=== PATIENT | male | born 1950 | race Caucasian/White ===

== ENCOUNTER 2023-05-08 11:30 | Emergency (ER) | payer MEDICARE | END 2023-05-08 13:30 | disposition home or self-care (01) | LOC: LB.ED 11:30 | DX: R60.0 Localized edema (principal); I10 Essential (primary) hypertension; E03.9 Hypothyroidism, unspecified; I48.91 Unspecified atrial fibrillation; Z79.899 Other long term (current) drug therapy | CPT/HCPCS: 36415; 85379; 99283; 99284 ==

== ENCOUNTER 2023-10-23 10:25 | Emergency (ER) | payer MEDICARE ==
[2023-10-23] MEDS ORDERED: Sodium Chloride 0.9% 10 ML Syringe FLUSH PRN (10:44)
[2023-10-23 10:51] LABS: HEMATOCRIT 31.5 % (40.0-54.0); HEMOGLOBIN 10.8 g/dL (13.0-18.0); MEAN CORPUSCULAR HEMOGLOBIN 36.2 pg (27.0-32.0); MEAN CORPUSCULAR HGB CONC 34.3 g/dL (31.0-35.0); MEAN PLATELET VOLUME 9.9 fL (6.0-10.0); RED BLOOD CELL COUNT 2.98 M/uL (4.50-6.50); RED CELL DISTRIBUTION WIDTH 16.2 % (11.0-16.0); WHITE BLOOD CELL COUNT,WBC 8.2 K/uL (4.0-11.0)
[2023-10-23 11:02] LABS: BUN/CREATININE RATIO 21.2 (6-25); CALCIUM 9.4 mg/dL (8.5-10.1); CARBON DIOXIDE,CO2 24.6 mmol/L (21.0-32.0); CREATININE 1.04 mg/dL (0.70-1.30); EST CRCL DRUG DOSING (CG) 64.34 mL/min; POTASSIUM,K 3.6 mmol/L (3.5-5.1)
[2023-10-23] MEDS: Morphine 4 MG/ML VIAL IVPUSH ONE ×5 (11:25→18:27)
[2023-10-23] MEDS: Orphenadrine 60 MG/2 ML Inj IM ONE (12:40)
[2023-10-23] MEDS: Orphenadrine 60 MG/2 ML Inj ONE (12:44)
[2023-10-23] MEDS: LORazepam 2 MG/ML SDV IVPUSH ONE (13:01)
[2023-10-23] MEDS: Morphine 4 MG/ML VIAL ONE ×4 (13:04→18:59)
[2023-10-23] MEDS: Sodium Chloride 0.9% 1,000 ML IV ONE (14:42)
[2023-10-26] MEDS: LORazepam 2 MG/ML SDV ONE (08:49)
== END 2023-10-23 18:45 ==
LOC: LB.ED 10:25
DX: T84.020A Dislocation of internal right hip prosthesis, initial encounter (principal); E03.9 Hypothyroidism, unspecified; I10 Essential (primary) hypertension; E78.00 Pure hypercholesterolemia, unspecified; Z79.01 Long term (current) use of anticoagulants; Z79.890 Hormone replacement therapy; Z79.899 Other long term (current) drug therapy; Z87.891 Personal history of nicotine dependence; W01.0XXA Fall on same level from slipping, tripping and stumbling without subsequent striking against object, initial encounter; Y92.000 Kitchen of unspecified non-institutional (private) residence as the place of occurrence of the external cause
CPT/HCPCS: 27265; 36415; 73501-RT; 80048; 83880; 85027; 96361; 96372; 96374; 96375; 96376; 99284-25; A0425; A0428; J2060; J2270; J2360; J7030